=== PATIENT | male | born 1965 | race Caucasian/White ===

== ENCOUNTER 2018-11-03 11:26 | Day surgery (SDC) | payer BC, OTHER ==
[~2018-11-03] VITALS: Ht 188 cm; Wt 95.9 kg
[2018-11-03 12:33] VITALS: Ht 188 cm; Wt 95.9 kg
[2018-11-03 12:45] VITALS: BP 126/71; PULSE 66; RESP 18
--- NOTE | 2018-11-03 12:58 | PREAC ---
Date/Time of Note Date/Time of Note DATE: 11/03/18 TIME: 12:57 Anesthesia Eval and Record Evaluation Time Pre-Procedure Interview DATE: 11/03/18 TIME: 12:57 Age 52 Sex male NPO: 8 hrs Preoperative diagnosis HISTORY OF COLON POLYP Planned procedure COLONOSCOPY WITH BIOPSIES Past Medical History Past Medical History: None Surgery & Anesthesia Issues No known issue Meds Anticoagulation: No Beta Milan within 24 hr: No Reason Beta Milan not given: Pt. not on B-Milan Reported Medications [None] No Conflict Check 11/03/18 Meds reviewed: Yes Allergies Coded Allergies: No Known Allergy (Unverified , 11/03/18) Allergies Reviewed: Yes Labs/Studies Labs Reviewed: Reviewed by anesthesiologist test: N/A Pre-procedure Exam Last vitals Vital Signs Date Temp Pulse Resp B/P (MAP) Pulse Ox O2 O2 Flow FiO2 Time Delivery Rate 11/03/18 97.3 66 18 126/71 97 Room Air 12:45 (89) Airway: Adequate mouth opening, Adequate thyromental dist Mallampati: Mallampati II Teeth: Normal Lung: Normal Heart: Normal ASA Physical Status ASA physical status: 1 Emergency: None Planned Anesthetic General/MAC: MAC Planned Pain Management Parenteral pain med Pre-operative Attestations Prior to commencing anesthesia and surgery, the patient was re-evaluated, there was verification of: *The patient's identity *The results of appropriate recent lab work and preoperative vital signs *The above evaluation not changing prior to induction *Anesthetic plan, risk benefits, alternative and complications discussed with patient/family; questions answered; patient/family understands, accepts and wishes to proceed. Yousuf Vasquez M.D. November 03, 2018 12:58
[2018-11-03] MEDS ORDERED: LIDOCAINE 2% (SDV) 5 ML INJ ONE (12:59)
[2018-11-03] MEDS ORDERED: PROPOFOL 0 ML ONE (12:59)
[2018-11-03] MEDS ORDERED: PROPOFOL 40 ML ONE (13:13)
--- NOTE | 2018-11-03 13:21 | PAC ---
Date/Time of Note Date/Time of Note DATE: 11/03/18 TIME: 13:20 Post-Anesthesia Notes Post-Anesthesia Note Last documented vital signs Vital Signs Date Temp Pulse Resp B/P (MAP) Pulse Ox O2 O2 Flow FiO2 Time Delivery Rate 11/03/18 97.3 66 18 126/71 97 Room Air 12:45 (89) Activity: WNL Respiratory function: WNL Cardiovascular function: WNL Mental status: Baseline Pain reasonably controlled: Yes Hydration appropriate: Yes Nausea/Vomiting absent: Yes Yousuf Vasquez M.D. November 03, 2018 13:21
[2018-11-03 13:36] VITALS: BP 145/72; PULSE 70; RESP 20
[2018-11-03 13:45] VITALS: BP 125/87; PULSE 70; RESP 17
== END 2018-11-03 13:41 | disposition home or self-care (01) ==
LOC: GIL 11:26
PROVIDERS: ATTEND Internal Medicine Gastroenterology
DX: Z12.11 Encounter for screening for malignant neoplasm of colon (principal); D12.5 Benign neoplasm of sigmoid colon; K64.8 Other hemorrhoids
CPT/HCPCS: 88305